=== PATIENT | female | born 1985 | race Asian ===

== ENCOUNTER 2017-08-20 02:18 | Emergency (ER) | payer OTHER ==
[~2017-08-20] VITALS: Ht 154.9 cm; Wt 54.4 kg
[2017-08-20 02:30] LABS: ABSOLUTE BASOPHILS 0.1 thou/uL (0.0-0.2); ABSOLUTE EOSINOPHILS 0.1 thou/uL (0.0-0.7); ABSOLUTE LYMPHOCYTES 1.8 thou/uL (0.8-5.3); ABSOLUTE MONOCYTES 0.5 thou/uL (0.0-1.2); ABSOLUTE NEUTROPHILS 3.6 thou/uL (1.6-8.1); BASOPHILS 1.3 %; EOSINOPHILS 1.2 %; HEMATOCRIT 41.7 % (37.0-47.0); HEMOGLOBIN 14.2 gm/dL (12.0-15.0); LYMPHOCYTES 30.1 %; MCH 31.1 pg (26.0-34.0); MCHC 34.2 g/dL (28.0-37.0); MONOCYTES 7.5 %; NUCLEATED RBCS 0 /100WBC; PLATELET COUNT* 316 thou/uL (150-400); POLYS 59.9 %; RBC 4.58 mil/uL (4.20-5.00); RDW-CV 12.3 % (10.5-14.5)
[2017-08-20 02:38] LABS: ANION GAP 13 mmol/L (7-16); BUN 8 mg/dL (7-18); CALCIUM 8.6 mg/dL (8.5-10.1); CHLORIDE 107 mmol/L (98-107); CO2 25 mmol/L (21-32); CREATININE 0.6 mg/dL (0.6-1.3); GLUCOSE 120 mg/dL (70-99); SODIUM 145 mmol/L (136-145)
[2017-08-20 02:45] LABS: ALKALINE PHOSPHATASE 57 U/L (46-116); SGOT 13 U/L (15-37); SGPT 23 U/L (30-65); TOTAL BILIRUBIN 0.2 mg/dL (<0.1-1.0); TOTAL PROTEIN 7.7 g/dL (6.4-8.2); TROPONIN-I LEVEL <0.06 ng/mL (<0.06)
[2017-08-20 06:22] VITALS: BP 99/66
--- NOTE | 2017-08-20 12:43 | EKG ---
[place] [address] ELECTROCARDIOGRAM REPORT Name: KADEEMMARSHALVINOD D Room: [facility]#: [id number] Admission: 08/20/17 Attend Phys: Discharge: 08/20/17 Date of : 85 Report #: [id number] THIS REPORT FOR: //name// [facility] ED Test Date: 2017-08-20 Test Time: 02:27:08 Pat Name: VINOD HUBER Department: Room: Gender: F Film Crew Member: MARINE Noonan : 1985 Requested By: Zi Padron Order Number: [id number] MD: Santosh Samuels Measurements Intervals [place] Rate: 99 P: 52 W[place]: 147 QRS: 49 QRSD: 85 T: 14 QT: 351 QTc: 451 Interpretive Statements Sinus rhythm Probable left atrial enlargement RSR' in V1 or V2, probably normal variant Borderline T abnormalities, anterior leads No previous ECG available for comparison Electronically Signed On 08-20-2017 12:43:43 CDT by Santosh Samuels [email or web address] <ELECTRONICALLY SIGNED> By: Santosh Samuels MD, [facility] 08/20/17 1243 6 6 Santosh Samuels MD, [facility] /EPI
== END 2017-08-20 06:24 | disposition home or self-care (01) ==
LOC: M.ERS 02:18
PROVIDERS: Emergency Medicine Emergency Medical Services
DX: F10.129 Alcohol abuse with intoxication, unspecified (principal)

== ENCOUNTER 2020-11-01 03:21 | Emergency (ER) | payer OTHER ==
[~2020-11-01] VITALS: Ht 154.9 cm; Wt 54.4 kg
[2020-11-01 03:32] VITALS: BP 129/77
== END 2020-11-01 04:47 ==
LOC: M.ERS 03:21
DX: Z02.89 Encounter for other administrative examinations (principal)